=== PATIENT | female | born 1960 | race Caucasian/White ===

== ENCOUNTER 2016-12-01 07:11 | Day surgery (SDC) | payer OTHER ==
[2016-11-22 15:35] VITALS: BMI 46.6
[2016-12-01] MEDS ORDERED: Fluconazole In NaCl,Iso-Osm 200 MG in Premix Bag 1 BAG IVPB SCH ×2 (08:30)
[2016-12-01] MEDS ORDERED: cefTRIAXone\\ROCEPHIN 2 GM in Sodium Chloride 0.9% 100 ML IVPB SCH (08:30)
--- NOTE | 2016-12-01 09:38 | RAD ---
RADIOGRAPH ABDOMEN ONE VIEW: Date: 12-01-16 History: 56-year-old female with renal calculus. Comparison: 11-22-16 FINDINGS: Again demonstrated is the approximately 15 mm triangular calcification overlying the right renal mid pole. The right ureteral stent remains. Bowel gas pattern is normal. No interval change overall. IMPRESSION: 1. Right nephroureteral stent. 2. Right nephrolithiasis consisting of at least one moderate sized renal calculus. 3. No interval change since 11-22-16. POS: JOSE
[2016-12-01] MEDS ORDERED: Iothalamate Meglumine 60% 50 ML VIAL FS ONE (10:06)
[2016-12-01] MEDS ORDERED: Midazolam HCl 2 mg/2 ml Vial ONE (10:22)
[2016-12-01] MEDS ORDERED: Fentanyl 100 MCG/2 ML VIAL ONE ×2 (10:22→12:07)
[2016-12-01] MEDS ORDERED: Lidocaine 1% PF 5 ML VIAL ONE (10:29)
[2016-12-01] MEDS ORDERED: Propofol 200 MG/20 ML VIAL ONE (10:29)
[2016-12-01] MEDS ORDERED: Ondansetron HCl/PF 4 MG/2 ML Vial ONE (10:29)
[2016-12-01] MEDS ORDERED: PHENYLEPHRINE-NS 100 MCG/ML 10 ML SYRINGE ONE (10:29)
[2016-12-01] MEDS ORDERED: Glycopyrrolate 0.2 MG/ML 5 ML SYRINGE ONE (10:29)
[2016-12-01] MEDS ORDERED: Oxybutynin Chloride 5 MG TAB ONE (12:04)
[2016-12-01] MEDS ORDERED: Phenazopyridine HCl 97.5 MG TABLET ONE (12:04)
--- NOTE | 2016-12-01 12:41 | OP ---
DATE OF PROCEDURE: 12/01/2016 PREOPERATIVE DIAGNOSES: A 56-year-old morbidly obese female with history of multiple right renal ca lculi: Three renal stones, 1.4 x 5 mm, 1.8 x 1 cm, right lower pole 7 x 10 mm. POSTOPERATIVE DIAGNOSES: A 56-year-old morbidly obese female with a history of multiple right renal calculi: Three renal stones, 1.4 x 5 mm, 1.8 x 1 cm, right lower pole 7 x 10 mm. Residual upper p ole renal lithiasis measuring approximately 1.8 centimeters. PROCEDURE: Cystoscopy, right retrograde, 6 x 26 double-J ureteral stent exchange with distal tail i n situ, flexible ureteroscopy, pyeloscopy, laser lithotripsy, right upper pole renal stone staged, r etrograde pyelogram. SURGEON: Viviana Kellogg D.O. ANESTHESIA: General. COMPLICATIONS: None apparent. SPECIMEN: Stone fragments for chemical analysis. INDICATIONS FOR THE PROCEDURE AND HISTORY: Ms. Gonzalez is a 56-year-old morbidly obese female who p resents today for staged intervention of multiple right large renal calculi. She has been fully inf ormed regarding indications for surgery as well as alternative options including ESWL, percutaneous nephrolithotomy. PCNL access was deemed difficult by interventional radiologist therefore she prese nts today for ureteroscopy, laser lithotripsy. Risks and complications including, but not limited t o, bleeding, pain, infection, injury to adjacent organs, urosepsis, stricture formation, injury to u reter, bladder reviewed with patient in detail and all questions were answered to her satisfaction, and she desired to proceed. DESCRIPTION OF THE PROCEDURE: After an informed consent is signed, the patient is taken to the oper ating room, placed in a dorsal lithotomy position with the genital area prepped and draped in the [facility] surgical sterile fashion. A preoperative KUB demonstrated significant improvement of her stone burden, only a right upper pole nidus is faintly visibly seen. I did make some progress in this thi rd stone fragment and the stone debris on our initial ureteroscopy. The patient was formally preppe d and draped and broad-spectrum antibiotics were provided. A 21 [place]i cystoscope was utilized for cystoscopy. Upon entering the bladder, the previously placed ureteral stent was removed to the leve l of the meatus. A 0.38 guidewire was then passed through the stent without difficulty and the sten t completely removed. Using a dual-lumen access sheath, we passed this to the level of the right pr oximal ureter without difficulty. A second safety wire, a 0.35 Super Stiff wire was passed after re trograde pyelogram was performed confirming proper placement. The dual-lumen access sheath was then removed and an 11/13 Yemeni x 36 cm navigator was able to be passed without any difficulty. Flexibl e ureteroscope was then advanced over the working wire. When we were in the renal pelvis the workin g wire was removed and we surveyed the collecting system. At the upper to mid pole stone moiety in the past there were minimal stone fragmented debris residual left which were punctate in nature, did not warrant treatment or to be basket extracted given their small nature. We again saw the large r enal stone that was partially fragmented in the upper pole. Using 365 micron laser fiber at a dust setting, we dusted the stone into multiple tiny fragments. At the end of the procedure, there were minute stone debris too small to basket or laser. I did obtain a specimen for chemical analysis onl y. She tolerated the procedure well. At the end of the procedure, I did not see any stone nidus th at required treatment as they were dust-like stone debris. At this time, a 6 x 26 double-J ureteral stent was replaced after we surveyed the ureter. Surveillance of the ureter was performed with a f lexible ureteroscope negotiating distally. There appeared to be a small fragment in the mid ureter; however, this appeared to be within the sheath. I did repeat a ureteroscopy with the rigid uretero scope which did not find any further stone nidus in the ureter itself. There was no evidence of ure teral mucosal trauma. A 6 x 26 double-J ureteral stent was passed without difficulty in proper plac ement. Bladder was completely emptied and she tolerated the procedure well. Given the size of the stone that was laser lithotripsy, I would prefer to leave the stent for 2 weeks with restaging scooter [place]. As she is scheduled to be out of town this week, she will obtain a CT stone protocol 12/13/2016 , pending review of CT scan she is tentatively scheduled for local cystoscopy stent pull on 12/15/19 at 8:00 a.m. She is discharged with ciprofloxacin, Diflucan for 3 days, AZO p.r.n., Colace p.r.n ., VESIcare 5 mg for 14 days, [place] prescription refill for number 50, 5/325 provided. The patient encouraged to drink plenty of fluids to aid in spontaneous passage of dust-like stone debris.
[2016-12-01] MEDS ORDERED: HYDROcodone/Acetaminophen 5/325 mg Tablet ONE (14:08)
--- NOTE | 2016-12-01 14:09 | RAD ---
RETROGRADE IVP: HISTORY: Right renal calculi. COMPARISON: KUB from 12/01/2016 and 11/17/2016. FINDINGS/IMPRESSION: Multiple limited intraoperative fluoroscopic views were obtained during a retrograde IVP. Contrast was placed in the right renal collecting system on the first image. There was a questionable fillin g defect within the right renal pelvis. A ureteral stent was eventually placed in good position. N o obvious calcifications were seen along the course of the stent. POS: JOSE
== END 2016-12-01 14:00 | disposition home or self-care (01) ==
LOC: SDC 07:11
PROVIDERS: ATTEND Urology
PROC: 0TF38ZZ Fragmentation in Right Kidney Pelvis, Via Natural or Artificial Opening Endoscopic (ICD-10-PCS; principal; 2016-12-01)
PROC: 0T768DZ Dilation of Right Ureter with Intraluminal Device, Via Natural or Artificial Opening Endoscopic (ICD-10-PCS; principal; 2016-12-01)
DX: N20.0 Calculus of kidney (principal); E11.9 Type 2 diabetes mellitus without complications; E78.5 Hyperlipidemia, unspecified; E66.01 Morbid (severe) obesity due to excess calories; Z68.42 Body mass index [BMI] 45.0-49.9, adult; Z79.899 Other long term (current) drug therapy; Z90.710 Acquired absence of both cervix and uterus; Z90.722 Acquired absence of ovaries, bilateral; Z90.49 Acquired absence of other specified parts of digestive tract; Z98.84 Bariatric surgery status; Z98.890 Other specified postprocedural states; Z87.891 Personal history of nicotine dependence; Z87.442 Personal history of urinary calculi; Z87.440 Personal history of urinary (tract) infections; Z82.49 Family history of ischemic heart disease and other diseases of the circulatory system
CPT/HCPCS: 74000; 74420; 82365; 88300; 96374; C1758; C1769; J0696; J1450; J2001; J2250; J2405; J2704; J3010; J7050; Q9961

== ENCOUNTER 2016-12-13 12:44 | Outpatient (CLI) | payer OTHER ==
--- NOTE | 2016-12-13 13:42 | CT ---
CT STONE PROTOCOL: Date: 12/13/16 HISTORY: Renal calculi. FINDINGS: Absence of oral and IV contrast reduces the sensitivity of the exam, particularly for evaluation of solid organs and bowel. The lung bases are clear. There are postop changes of gastric bypass surgery, cholecystectomy, and h ysterectomy. No free air or free fluid is seen in the abdomen or pelvis. A normal appearing appendix is present. There are punctate calculi in the left kidney. There are a couple of calculi in the right kidney kelechi suring 7.0 and 6.0 mm, respectively. A right-sided ureteral stent is present. No calculi seen in the ureters or the urinary bladder. No hydroureteronephrosis is noted. There is sigmoid diverticulosis. There are degenerative changes in the spine. There are vascular ke cifications without evidence of aneurysmal dilatation of the abdominal aorta. There is an 8.0 mm left adrenal nodule with measurements corresponding to a benign adenoma. IMPRESSION: 1. Bilateral nonobstructing renal calculi. 2. Right ureteral stent. 3. Sigmoid diverticulosis. 4. Small left adrenal nodule consistent with adenoma. POS: KATHY
== END 2016-12-13 12:45 | disposition home or self-care (01) ==
LOC: CT 12:44
PROVIDERS: ATTEND Urology
DX: N20.0 Calculus of kidney (principal); K57.30 Diverticulosis of large intestine without perforation or abscess without bleeding; E27.8 Other specified disorders of adrenal gland; Z96.0 Presence of urogenital implants
CPT/HCPCS: 74176

== ENCOUNTER 2017-06-16 09:12 | Outpatient (CLI) | payer OTHER | END 2017-06-16 09:13 | disposition home or self-care (01) | LOC: BICMAMMO 09:12 | PROVIDERS: ATTEND Family Medicine | DX: Z12.31 Encounter for screening mammogram for malignant neoplasm of breast (principal) | CPT/HCPCS: 77063; 77067 ==

== ENCOUNTER 2022-04-15 15:40 | Outpatient (CLI) | payer OTHER | END 2022-04-15 15:41 | disposition home or self-care (01) | LOC: BICULT 15:40 | PROVIDERS: ATTEND Family Medicine | DX: E11.9 Type 2 diabetes mellitus without complications (principal); E04.2 Nontoxic multinodular goiter | CPT/HCPCS: 76536 ==

== ENCOUNTER → 2022-05-31 | Day surgery (SDC) | payer OTHER ==
[2022-05-28 14:32] VITALS: BMI 44.4
[~2022-05-31] MED LIST: Lidocaine 1% PF 5 ML VIAL ONE; Sodium Bicarbonate 2.5 MEQ/5 ML VIAL ONE
[2022-05-31 14:48] VITALS: BP 121/61
== END | disposition home or self-care (01) ==
LOC: ULT 13:52
PROVIDERS: ATTEND Family Medicine
PROC: 0GBG3ZX Excision of Left Thyroid Gland Lobe, Percutaneous Approach, Diagnostic (ICD-10-PCS; principal; 2022-05-31)
DX: E04.2 Nontoxic multinodular goiter (principal); Z79.84 Long term (current) use of oral hypoglycemic drugs; Z79.899 Other long term (current) drug therapy
CPT/HCPCS: 10005; 10006; 88173; 88305

== ENCOUNTER 2022-06-09 14:55 | Outpatient (CLI) | payer OTHER | END 2022-06-09 14:56 | disposition home or self-care (01) | LOC: BICMAMMO 14:55 | PROVIDERS: ATTEND Family Medicine | DX: Z12.31 Encounter for screening mammogram for malignant neoplasm of breast (principal); N63.10 Unspecified lump in the right breast, unspecified quadrant | CPT/HCPCS: 77063; 77067 ==

== ENCOUNTER 2022-06-16 15:00 | Outpatient (CLI) | payer OTHER | END 2022-06-16 15:01 | disposition home or self-care (01) | LOC: BICMAMMO 15:00 | PROVIDERS: ATTEND Family Medicine | DX: N63.12 Unspecified lump in the right breast, upper inner quadrant (principal) | CPT/HCPCS: G0279 ==

== ENCOUNTER → 2022-06-24 | Day surgery (SDC) | payer OTHER | END | disposition home or self-care (01) | LOC: BICULT 12:29 | PROVIDERS: ATTEND Family Medicine | PROC: 0H9T3ZX Drainage of Right Breast, Percutaneous Approach, Diagnostic (ICD-10-PCS; principal; 2022-06-24) | DX: C50.211 Malignant neoplasm of upper-inner quadrant of right female breast (principal); Z17.0 Estrogen receptor positive status [ER+] | CPT/HCPCS: 19083; 88305; 88341; 88342 ==

== ENCOUNTER 2022-09-23 06:06 | Day surgery (SDC) | payer OTHER ==
[2022-09-22 12:13] VITALS: BMI 43.0
[2022-09-23] MEDS ORDERED: Sodium Chloride 0.9% 100 ML ONE (06:44)
[2022-09-23] MEDS ORDERED: Acetaminophen 500 MG TAB ONE (06:44)
[2022-09-23] MEDS ORDERED: CEFAZOLIN 2 GM VIAL ONE (06:44)
[2022-09-23] MEDS ORDERED: Lidocaine 1% MPF 2 ML VIAL ONE (06:45)
[2022-09-23] MEDS ORDERED: Ketorolac Tromethamine 30 MG/ML VIAL ONE (06:45)
[2022-09-23] MEDS ORDERED: Midazolam HCl 2 mg/2 ml Vial ONE (09:13)
[2022-09-23] MEDS ORDERED: EPINEPHrine 1 MG/ML AMP ONE (09:14)
[2022-09-23] MEDS ORDERED: Bupivacaine 0.25% HCL 30 ML VIAL ONE (09:14)
[2022-09-23] MEDS ORDERED: fentaNYL PF 100 MCG/2 ML SYRINGE ONE (09:19)
[2022-09-23] MEDS ORDERED: Promethazine HCl 25 MG/ML VIAL ONE (09:19)
[2022-09-23] MEDS ORDERED: Ondansetron PF 4 MG/2 ML Vial ONE (09:26)
[2022-09-23] MEDS ORDERED: PROPOFOL 200 MG/20 ML VIAL ONE (09:26)
[2022-09-23] MEDS ORDERED: Lidocaine 1% PF 5 ML VIAL ONE (09:26)
[2022-09-23] MEDS ORDERED: ePHEDrine Sulfate 50 MG/10 ML VIAL ONE (09:26)
[2022-09-23] MEDS ORDERED: fentaNYL 50 mcg/mL 1 mL Vial ONE (10:50)
[2022-09-23] MEDS ORDERED: HYDROcodone/Acetaminophen 5/325 mg Tablet ONE (11:29)
== END 2022-09-23 11:51 | disposition home or self-care (01) ==
LOC: SDC 06:06
PROVIDERS: ATTEND Specialist
PROC: 0HBT0ZZ Excision of Right Breast, Open Approach (ICD-10-PCS; principal; 2022-09-23)
DX: D05.11 Intraductal carcinoma in situ of right breast (principal); E11.9 Type 2 diabetes mellitus without complications; E78.5 Hyperlipidemia, unspecified; E66.01 Morbid (severe) obesity due to excess calories; Z68.41 Body mass index [BMI] 40.0-44.9, adult; Z98.84 Bariatric surgery status; Z90.710 Acquired absence of both cervix and uterus; Z87.891 Personal history of nicotine dependence
CPT/HCPCS: 88307; C1889; J0171; J1885; J2250; J2405; J2550; J2704; J3010; J3490; S0020

== ENCOUNTER 2023-01-18 17:00 | Outpatient (CLI) | payer OTHER | END 2023-01-18 17:01 | disposition home or self-care (01) | LOC: SLEEPLAB 17:00 | PROVIDERS: ATTEND Internal Medicine | DX: G47.33 Obstructive sleep apnea (adult) (pediatric) (principal) | CPT/HCPCS: 95810 ==

== ENCOUNTER 2023-02-03 17:00 | Outpatient (CLI) | payer OTHER | END 2023-02-03 17:01 | disposition home or self-care (01) | LOC: SLEEPLAB 17:00 | PROVIDERS: ATTEND Internal Medicine | DX: G47.33 Obstructive sleep apnea (adult) (pediatric) (principal); R06.83 Snoring; G47.10 Hypersomnia, unspecified; E66.9 Obesity, unspecified; I48.91 Unspecified atrial fibrillation; Z68.41 Body mass index [BMI] 40.0-44.9, adult | CPT/HCPCS: 95811 ==

== ENCOUNTER 2023-02-09 08:54 | Outpatient (CLI) | payer MEDICARE, BC | END 2023-02-09 08:55 | disposition home or self-care (01) | LOC: BICMAMMO 08:54 | PROVIDERS: ATTEND Internal Medicine Hematology & Oncology | DX: Z13.820 Encounter for screening for osteoporosis (principal); C50.811 Malignant neoplasm of overlapping sites of right female breast; M85.851 Other specified disorders of bone density and structure, right thigh | CPT/HCPCS: 77080 ==

== ENCOUNTER 2023-07-27 08:53 | Outpatient (CLI) | payer MEDICARE, OTHER | END 2023-07-27 08:54 | disposition home or self-care (01) | LOC: BICMAMMO 08:53 | PROVIDERS: ATTEND Specialist | DX: Z08 Encounter for follow-up examination after completed treatment for malignant neoplasm (principal); Z85.3 Personal history of malignant neoplasm of breast | CPT/HCPCS: 77066; G0279 ==

== ENCOUNTER 2023-12-15 13:08 | Outpatient (CLI) | payer MEDICARE | END 2023-12-15 13:09 | disposition home or self-care (01) | LOC: MRI 13:08 | PROVIDERS: ATTEND Family Medicine | DX: M25.511 Pain in right shoulder (principal); S46.911A Strain of unspecified muscle, fascia and tendon at shoulder and upper arm level, right arm, initial encounter ==

== ENCOUNTER 2024-02-14 14:30 | Outpatient (CLI) | payer MEDICARE | END 2024-02-14 14:31 | disposition home or self-care (01) | LOC: BICMAMMO 14:30 | PROVIDERS: ATTEND Internal Medicine Hematology & Oncology | DX: M85.851 Other specified disorders of bone density and structure, right thigh (principal); M85.852 Other specified disorders of bone density and structure, left thigh | CPT/HCPCS: 77080 ==